=== PATIENT | male | born 1945 | race Caucasian/White ===

== ENCOUNTER → 2024-11-23 08:00 | Outpatient (BNVA) | payer MEDICARE, SELFPAY | PROVIDERS: Visit Provider Dermatology | DX: L21.8 Other seborrheic dermatitis (principal); D22.5 Melanocytic nevi of trunk; D69.2 Other nonthrombocytopenic purpura; Z08 Encounter for follow-up examination after completed treatment for malignant neoplasm; Z85.828 Personal history of other malignant neoplasm of skin; D48.5 Neoplasm of uncertain behavior of skin; L57.0 Actinic keratosis | CPT/HCPCS: 11102; 17000; 69100; 99204 ==

== ENCOUNTER → 2024-12-31 10:56 | Outpatient (BNVA) | payer MEDICARE, OTHER, SELFPAY | PROVIDERS: Visit Provider Dermatology | DX: D04.4 Carcinoma in situ of skin of scalp and neck (principal) | CPT/HCPCS: 17272 ==